=== PATIENT | male | born 1995 | race Caucasian/White ===

== ENCOUNTER 2021-10-12 05:47 | Emergency (ER) | payer OTHER ==
[2021-10-12] MEDS ORDERED: Ketorolac Tromethamine 30 MG/ML VIAL ONE (06:02)
[2021-10-12] MEDS ORDERED: HYDROcodone/Acetaminophen 5/325 mg Tablet ONE (06:03)
== END 2021-10-12 06:42 | disposition home or self-care (01) ==
LOC: CSHERS 05:47
DX: M25.511 Pain in right shoulder (principal); K21.9 Gastro-esophageal reflux disease without esophagitis; Z79.899 Other long term (current) drug therapy
CPT/HCPCS: 71046; 93005; 96372; J1885

== ENCOUNTER 2022-05-26 13:35 | Outpatient (CLI) | payer OTHER ==
[~2022-05-26 13:35] MED LIST: Iopamidol 300 61% 100 ML VIAL FS ONE
== END 2022-05-26 13:36 | disposition home or self-care (01) ==
LOC: CSHCT 13:35
PROVIDERS: ATTEND Family Medicine
DX: R10.84 Generalized abdominal pain (principal); K76.0 Fatty (change of) liver, not elsewhere classified
CPT/HCPCS: 74177

== ENCOUNTER 2023-02-20 04:04 | Emergency (ER) | payer OTHER ==
[2023-02-20] MEDS ORDERED: guaiFENesin/Codeine 200 mg/20 mg 10 ml Cup PO SCH (05:00)
[2023-02-20] MEDS ORDERED: guaiFENesin/Codeine Phosphate 100 mg/10 mg 5 ml UD Cup PO SCH (05:15)
[2023-02-20 05:25] LABS: SARS-CoV-2 NAA Rapid Test DETECTED (NotDetected)
== END 2023-02-20 05:36 | disposition home or self-care (01) ==
LOC: CSHERS 04:04
DX: U07.1 COVID-19 (principal); K21.9 Gastro-esophageal reflux disease without esophagitis; Z79.899 Other long term (current) drug therapy
CPT/HCPCS: 71045